=== PATIENT | female | born 1970 | race Caucasian/White ===

== ENCOUNTER 2016-07-22 17:34 | Emergency (ER) | payer SELFPAY | END 2016-07-22 20:59 | disposition home or self-care (01) | LOC: ER1 17:34 | DX: S46.912A Strain of unspecified muscle, fascia and tendon at shoulder and upper arm level, left arm, initial encounter (principal); F17.210 Nicotine dependence, cigarettes, uncomplicated; X50.0XXA Overexertion from strenuous movement or load, initial encounter | CPT/HCPCS: 73030; 96372; 99283; J1100; J1885 ==